=== PATIENT | male | born 1965 | race Caucasian/White ===

== ENCOUNTER 2017-05-15 07:15 | Emergency (ER) | payer SELFPAY ==
--- NOTE | 2017-05-15 07:20 | EDPHY ---
H & P Time Seen by Provider: 05/15/17 07:17 HPI/ROS: CHIEF COMPLAINT: Mandibular swelling HISTORY OF PRESENT ILLNESS: The patient presents to the ED with a 2 day history of mandibular swelling. The patient has a history of chronically poor dentition. He denies significant past medical history. The patient denies significant pain. The patient reports the swelling has increased over the past day. There is tenderness to palpation. He denies associated fever, cough or congestion REVIEW OF SYSTEMS: A comprehensive 10 point review of systems is otherwise negative aside from elements mentioned in the history of present illness. Source: Patient Exam Limitations: No limitations - Medical/Surgical History PMH: Past medical history: Denies - Family History Significant Family History: No pertinent family hx - Social History Smoking Status: Current some day smoker - Physical Exam Exam: General Appearance: Alert, no distress Eyes: Pupils equal and round no pallor or injection ENT, Mouth: Moist mucous membranes, poor dentition, tenderness of palpation in soft tissue swelling noted along the right mandible Respiratory: There are no retractions, lungs are clear to auscultation Cardiovascular: Regular rate and rhythm Gastrointestinal: Abdomen is soft and nontender, no masses, bowel sounds normal Neurological: A&O, normal motor function, normal sensory exam, normal cranial nerves Skin: Warm and dry, no rashes Musculoskeletal: Neck is supple nontender Extremities: symmetrical, full range of motion Constitutional: Initial Vital Signs Temperature (C) 36.4 C 05/15/17 07:18 Heart Rate 80 05/15/17 07:18 Respiratory Rate 17 05/15/17 07:18 Blood Pressure 139/70 H 05/15/17 07:18 O2 Sat (%) 96 05/15/17 07:18 O2 Delivery Mode Room Air Allergies/Adverse Reactions: No Known Allergies Allergy (Unverified 05/15/17 07:21) Home Medications: Medication Instructions Recorded Hydrocodone/APAP 5/325 [[place] 1 - 2 each PO Q6 PRN #20 tab 05/15/17 5/325] Penicillin V Potassium [Pen Vk] 500 mg PO TID #21 tab 05/15/17 Medical Decision Making ED Course/Re-evaluation: The patient presents to the ED with an apical dental abscess. The patient received penicillin VK in the emergency department. The patient is nontoxic and well-appearing. He is afebrile with stable vital signs. Consultation was made with our on-call oral surgeon Dr. Rivers at 8:00 a.m.. She will see him in the office this morning. Differential Diagnosis: Differential diagnosis considered includes apical abscess, retropharyngeal abscess, submandibular abscess, parotitis Departure - Departure Disposition: Home, Routine, Self-Care Clinical Impression: Abscess, dental Condition: Good Instructions: Dental Abscess (ED) Additional Instructions: 1. Take antibiotics as directed. 2. [place] as needed for pain. 3. Go directly to the oral surgeon's office. She is expecting you for further evaluation. Referrals: Michael Rivers MD [Medical Doctor] - As per Instructions Prescriptions: Hydrocodone/APAP 5/325 [[place] 5/325] 1 - 2 each PO Q6 PRN #20 tab PRN Reason: for pain Penicillin V Potassium [Pen Vk] 500 mg PO TID #21 tab
[2017-05-15] MEDS ORDERED: PENICILLIN VK 500 MG TAB PO ONE (07:57)
[2017-05-15 08:25] VITALS: BP 135/82; PULSE 76; RESP 18; TEMP 98.6; O2SAT 97
== END 2017-05-15 08:25 | disposition home or self-care (01) ==
DX: K04.7 Periapical abscess without sinus (principal); F17.200 Nicotine dependence, unspecified, uncomplicated